=== PATIENT | female | born 1960 | race Hispanic/Latino ===

== ENCOUNTER 2016-08-02 06:31 | Day surgery (SDC) | payer BC ==
--- NOTE | 2016-08-02 07:17 | Anesthesia Consultation ---
Anesthesia Consult and Med Hx Date of service: 08/02/16 - Airway Anesthetic Teeth Evaluation: Dentures ROM Head & Neck: Adequate Mental/Hyoid Distance: Adequate Mallampati Class: Class II Intubation Access Assessment: Probably Good - Pulmonary Exam CTA: Yes - Cardiac Exam Cardiac Exam: RRR - Pre-Operative Health Status ASA Pre-Surgery Classification: ASA3 Proposed Anesthetic Plan: MAC - Pulmonary Hx Smoking: Yes (quit 2012) Hx Asthma: Yes (SEASONAL) Hx Respiratory Symptoms: No Hx Sleep Apnea: Yes (recent diagnosis and start CPAP 08/01/16) - Cardiovascular System Hx Hypertension: Yes (10YRS) - Central Nervous System Hx Seizures: No (migraines) Hx Psychiatric Problems: No - Gastrointestinal Hx Gastroesophageal Reflux Disease: Yes - Endocrine Hx Hypothyroidism: Yes - Hematic Hx Anemia: No Hx Sickle Cell Disease: No - Other Systems Hx Alcohol Use: No Hx Substance Use: No Hx Cancer: No Hx Obesity: Yes
--- NOTE | 2016-08-02 07:18 | Anesthesia Day of Surgery ---
Anesthesia Day of Surgery - Day of Surgery Patient Examined: Yes Patient H&P Reviewed: Yes Patient is NPO: Yes
[2016-08-02] MEDS ORDERED: WATER FOR IRRIG STERILE IR ONE (07:30)
[2016-08-02] MEDS ORDERED: NACL 0.9% 1000 ML 1,000 ML IV SCH (08:00)
[2016-08-02] MEDS ORDERED: DIPRIVAN 10 MG/ML IV ONE ×2 (08:16→09:11)
--- NOTE | 2016-08-02 08:29 | Discharge Summary ---
Providers - Providers Date of discharge: 08/02/16 Attending physician: MARGARET CARBONE Primary care physician: NOEMÍ RAY Hospitalization Condition: Stable Procedures: EGD Disposition: DISCHARGED TO HOME OR SELFCARE Core Measure Documentation - Palliative Care Palliative Care/ Comfort Measures: Not Applicable - Core Measures Any of the following diagnoses?: none Exam - Constitutional Vitals: Temp Pulse Resp BP Pulse Ox 98.2 F 87 18 107/74 96 08/02/16 08:04 08/02/16 08:04 08/02/16 08:04 08/02/16 08:04 08/02/16 08:04 General appearance: Present: no acute distress, well-nourished - EENT Eyes: Present: PERRL ENT: hearing intact, clear oral mucosa - Neck Neck: Present: supple, normal ROM - Respiratory Respiratory effort: normal Respiratory: bilateral: CTA - Cardiovascular Heart Sounds: Present: S1 & S2. Absent: rub, click - Abdominal General gastrointestinal: Present: soft, non-tender, non-distended, normal bowel sounds, other (obese) Female genitourinary: Present: deferred - Rectal Rectal Exam: deferred - Integumentary Integumentary: Present: clear, warm, dry - Musculoskeletal Musculoskeletal: gait normal, strength equal bilaterally - Neurologic Neurologic: CNII-XII intact, moves all extremities Plan Activity: no restrictions Weight Bearing Status: Full Weight Bearing Diet: low carbohydrate Follow up with: NOEMÍ RAY MD [Primary Care Provider] - 7 Days
[2016-08-02 09:38] VITALS: BP 123/71
--- NOTE | 2016-08-02 09:43 | Post Anesthesia Evaluation ---
- Post Anesthesia Evaluation Patient Participated: Yes Airway Patent: Yes Stable Respiratory Function: Yes Nausea/Vomiting: No Temp > 96.8F: Yes Pain Manageable: Yes Adequeate Hydration: Yes Anesthesia Complications: No Block Receding Appropriately: Not Applicable Patient on Ventilator: No
--- NOTE | 2016-08-02 12:27 | Operative Report ---
ATTENDING SURGEON: Qamar Sierra MD GEOPHYSICS SCIENTIST: Richard Melendrez MD. PREOPERATIVE DIAGNOSIS: Dyspepsia. POSTOPERATIVE DIAGNOSES: Medium to large size hiatal hernia, Zambrano's esophagus. PROCEDURE PERFORMED: Esophagogastroduodenoscopy with cold forceps biopsies x 4. INDICATIONS FOR PROCEDURE: The patient is a 56-year-old obese female, who has been undergoing workup for bariatric surgery. She complains of dyspepsia. After discussing risks and benefits of the procedure, she has decided to consent for it. DESCRIPTION OF PROCEDURE: The patient was brought to the endoscopic suite, was placed in the stretcher in the left lateral position. MAC anesthesia was used by the anesthesia team. Time-out was called. The patient and the procedure were correct. So, I proceeded to insert the endoscope into the patient's oropharynx, go down the esophagus, into the stomach and the duodenum and the scope was slowly then retrieved assessing the mucosa circumferentially. No mucosal abnormalities in the first and second portion of the duodenum was visualized. In the antrum, we did not find any mucosal findings. The endoscope was retroflexed, and we noted a medium to large size hiatal hernia. Then the endoscope was deflected again. The stomach was desufflated and the endoscope was retrieved into the esophagus. Mucosal examination revealed changes of the lower esophagus, possible Zambrano's esophagus, so we decided to take cold forceps biopsies. Three biopsies were taken from different locations of the affected mucosa. Then, we proceeded to insert the endoscope to the antrum and biopsied the antral mucosa for H. pylori. At this point, the stomach was desufflated again and the endoscope retrieved all the way out to the oropharynx of the patient and out of her mouth. She was sent to the endoscopy recovery room. Dr. Sierra was present throughout the procedure. JOB# [id number] NICKI/JAQUELINE MTDClaribel
== END 2016-08-02 06:32 | disposition home or self-care (01) ==
LOC: GIO 06:31
PROVIDERS: ATTEND Specialist
DX: K29.50 Unspecified chronic gastritis without bleeding (principal); K44.9 Diaphragmatic hernia without obstruction or gangrene; K22.70 Barrett's esophagus without dysplasia; I10 Essential (primary) hypertension; J45.909 Unspecified asthma, uncomplicated; G47.30 Sleep apnea, unspecified; K21.9 Gastro-esophageal reflux disease without esophagitis; E03.9 Hypothyroidism, unspecified; E66.9 Obesity, unspecified; Z87.891 Personal history of nicotine dependence; Z68.41 Body mass index [BMI] 40.0-44.9, adult
CPT/HCPCS: 43239; 88305; 88342; J2704; J7030

== ENCOUNTER 2016-08-23 11:22 | Inpatient (IN) | payer BC ==
--- NOTE | 2016-08-01 08:48 | Anesthesia Consultation ---
Anesthesia Consult and Med Hx Date of service: 08/23/16 - Airway Anesthetic Teeth Evaluation: Dentures (upper and lower), Edentulous ROM Head & Neck: Adequate Mental/Hyoid Distance: Adequate Mallampati Class: Class II Intubation Access Assessment: Probably Good - Pulmonary Exam CTA: Yes - Cardiac Exam Cardiac Exam: RRR - Pre-Operative Health Status ASA Pre-Surgery Classification: ASA3 Proposed Anesthetic Plan: General - Pulmonary Hx Smoking: Yes (quit 2012) Hx Asthma: Yes (SEASONAL) Hx Respiratory Symptoms: No Hx Sleep Apnea: Yes (recent diagnosis and start CPAP 08/01/16) - Cardiovascular System Hx Hypertension: Yes (10YRS) - Central Nervous System Hx Seizures: No (migraines) Hx Psychiatric Problems: No - Gastrointestinal Hx Gastroesophageal Reflux Disease: Yes - Endocrine Hx Insulin Dependent Diabetes: No Hx Hypothyroidism: Yes - Hematic Hx Anemia: No Hx Sickle Cell Disease: No - Other Systems Hx Alcohol Use: No Hx Substance Use: No Hx Cancer: No Hx Obesity: Yes
--- NOTE | 2016-08-19 11:03 | Admit Criteria Form ---
Admission Criteria Documentation: AMBULATORY SURGERY EXCEPTION CRITERIA Ambulatory Surgery Exception Criteria ( Place 'X' for any and all applicable criteria): Surgery or procedure performed on ambulatory basis may require inpatient stay for[A] ANY ONE of the following(1)(2)(3)(4)(5)(6)(7)(8)(9): [X] I. A preoperative situation, condition, or finding that warrants inpatient stay as indicated by ANY ONE of the following: [] a) Inpatient care needed because of severity of a disease or condition rather than the surgery (eg, severe cardiac or respiratory disease, severe infection) (15) (16 ) (17) (18) [] b) Emergent procedure (eg, angioplasty for acute ischemia)(19) [] c) Complex surgical approach or situation as indicated by ANY ONE of the following(3): [] i) Open approach needed instead of usual endoscopic, transcatheter, or other less invasive procedure [] ii) Difficult approach because of previous operation [] iii) Airway monitoring required after open neck procedures(20)(21) [] iv) Large mass requiring unusually extensive dissection [] v) Additional complicating feature requiring inpatient care (eg, drain management)(22(23): [X] d) Major surgery in a pt with high anesthetic risk as indicated by ANY ONE of the following (2)(3)(5)(7)(8): [X] i) ASA risk class III or higher (severe systemic disease impairing function) [D] [] ii) Advanced age (eg, older than 85 years)(14)(24) [] iii) Symptomatic heart failure(25) [] iv) Symptomatic asthma or COPD(8)(21) [] v) Morbid obesity with hemodynamic or respiratory problems(20)( 21)(26)(27) [] vi) Obstructive sleep apnea(20)(21) [] vii) Former premature infants who are younger than 60 weeks [] viii) High risk for severe postoperative abnormalities (eg, severe postoperative hypocalcemia after parathyroidectomy for severe hyperparathyroidism)(27)( 28) [] ix) Unstable angina(25) [] e) Drug-related risk requiring inpatient stay as indicated by ANY ONE of the following(5)(10)(14)(32)(33) [] i) Procedure requires discontinuing drugs or other therapy (eg , antiarrhythmic medication, antiseizure medication), which necessitates inpatient observation or treatment.(18)(31) [] ii) Major surgery and high risk drug use as indicated by ANY ONE of the following: [] 1) Active abuse of cocaine or similar drug [] 2) Monoamine oxidase inhibitor use [] 3) Other drug identified as posing risk [] f) Inadequate outpatient care situation as indicated by ANY ONE of the following(5)(10)(14)(32)(33) [] i) Patient lives remote from medical facility and procedure has urgent complication potential, and temporary nearby residence cannot be arranged [] ii) Patient will have postprocedure incapacitation and inadequate assistance at home, or alternative level of care cannot be arranged. [] iii) Patient will have long general anesthesia or procedure side effect resolution time, and competent person to stay with patient on first postoperative night at home or alternative level of care cannot be arranged. []iv) Other inadequate outpatient situation that cannot be handled by other means [] II. A perioperative event, condition, or finding that warrants inpatient stay as indicated by ANY ONE of the following (1)(2)(3): [] a) Inadequate physiologic recovery: cardiovascular, respiratory, or hemodynamic status not normal or near preoperative baseline(18) [] b) Hemodynamic instability [] c) Patient not alert with near normal or baseline mental status [] d) Temperature not normal or as expected and not appropriate for outpatient treatment of condition [] e) Ambulatory or appropriate activity level status not yet achieved post procedure [E](34)(35)(36) [] f) Operative site not appropriate (eg, unexpected or excessive drainage or bleeding) [] g) Postoperative effects not resolved or adequately managed (eg, significant pain or vomiting not appropriate for outpatient or next level of care)(10)(12) [] h) Complicating features requiring inpatient care as indicated by ANY ONE of the following(37): [] i) Severe complications of procedure (eg, bowel injury, airway compromise, vascular injury,severe hemorrhage) [] ii) Extensive (eg, dissection far beyond usual scope of procedure ) or prolonged (eg, 120 minutes beyond usual) surgery needed requiring inpatient postoperative care [] iii) Conversion to an open or complex procedure that requires inpatient care (eg, open vs laparoscopic cholecystectomy, abdominal vs vaginal hysterectomy)(38) [] iv) Comorbid condition or test result identified during or post procedure that requires inpatient care (7) [] v) Malignant hyperthermia(30) [] vi) Other complicating feature requiring inpatient care(22)(23) Inpatient stay may be needed until ALL of the following are present (1)(2)(3)(4) (5)(6)(10)(14)(33)(40): []a) Physiologic recovery: cardiovascular, respiratory, and hemodynamic status normal or near preoperative baseline []b) Hemodynamic stability []c) Patient alert, with near normal or baseline mental status []d) Temperature appropriate: patient afebrile or temperature appropriate for outpt treatment of condition []e) Activity level appropriate: ambulatory or appropriate activity level post procedure []f) Operative site appropriate as indicated by ALL of the following: []i) Site dry or with expected drainage []ii) Any blood noted is as expected for procedure. []g) Postoperative effects resolved or managed as indicated by ALL of the following: []i) Pain management appropriate for outpatient (or next level of) care(10) []ii) Minimal nausea and vomiting: if present, successfully treated with oral medication(12) []iii) Headache, dizziness, or drowsiness (if present) are mild. []h) Voiding status acceptable as indicated by ANY ONE of the following: []i) Voiding spontaneously []ii) No voiding but instructions given for follow-up in 6 to 8 hours []iii) Urinary catheter in place, and instructions given for follow-up []i) Complicating features requiring inpatient care manageable at a lower level of care(37) []j) Comorbid conditions manageable at a lower level of care(37) The original [facility] content created by [facility] has been revised. The portions of the content which have been revised are identified through the use of italic text or in bold, and [facility] [employer] has neither reviewed nor approved the modified material. All other unmodified content is copyright [facility]. Please see references footnoted in the original [facility] edition 2016 Admission Criteria Met: Yes
[~2016-08-23 11:22] MED LIST: DILAUDID IV PRN; LOVENOX SUB-Q NR; LOVENOX SUB-Q SCH; PEPCID PO NR; VERSED IV NR
--- NOTE | 2016-08-23 15:26 | Anesthesia Day of Surgery ---
Anesthesia Day of Surgery - Day of Surgery Patient Examined: Yes Patient H&P Reviewed: Yes Patient is NPO: Yes
[2016-08-23] MEDS ORDERED: PEPCID IV SCH (15:38)
[2016-08-23] MEDS: LACTATED RINGERS 1,000 ML IV SCH (15:45)
[2016-08-23] MEDS ORDERED: TRANSDERM-SCOP TD SCH (16:00)
[2016-08-23] MEDS ORDERED: DILAUDID ONE (17:51)
[2016-08-23] MEDS ORDERED: DIPRIVAN 10 MG/ML IV ONE (17:51)
[2016-08-23] MEDS ORDERED: XYLOCAINE MPF 2% ONE (17:51)
[2016-08-23] MEDS ORDERED: ZEMURON IV ONE (17:52)
[2016-08-23] MEDS ORDERED: DECADRON ONE (17:52)
[2016-08-23] MEDS ORDERED: ZOFRAN ONE (17:52)
[2016-08-23] MEDS ORDERED: NACL 0.9% IR ONE ×2 (18:57→19:06)
[2016-08-23] MEDS ORDERED: XYLOCAINE 1% 20 mL INFILTRATI ONE ×2 (18:57→19:06)
[2016-08-23] MEDS ORDERED: MARCAINE-EPI 0.5%-1:200,000 INFILTRATI ONE ×2 (18:57→19:06)
[2016-08-23] MEDS ORDERED: NEOSTIGMINE ONE (21:24)
[2016-08-23] MEDS ORDERED: ROBINUL ONE (21:24)
--- NOTE | 2016-08-23 22:04 | Post Anesthesia Evaluation ---
- Post Anesthesia Evaluation Patient Participated: Yes Airway Patent: Yes Stable Respiratory Function: Yes Temp > 96.8F: Yes Pain Manageable: Yes Adequeate Hydration: Yes Anesthesia Complications: No Block Receding Appropriately: Not Applicable
[2016-08-23] MEDS: DILAUDID IV PRN ×2 (22:05→22:15)
[2016-08-23 23:40] LABS: Hematocrit 39.1 % (30.3-42.9); Hemoglobin 12.6 gm/dl (10.1-14.3); Mean Corpuscular HGB Conc 32 % (30-34); Mean Corpuscular Hemoglobin 28 pg (28-32); Mean Corpuscular Volume 88 fl (79-97); Platelet Count 244 K/mm3 (140-440); Red Blood Count 4.44 M/mm3 (3.65-5.03); Red Cell Distribution Width 13.9 % (13.2-15.2)
[2016-08-24 00:01] LABS: Magnesium 1.8 mg/dL (1.7-2.3); Phosphorous 4.2 mg/dL (2.5-4.5)
[2016-08-24 00:05] LABS: Alanine Aminotransferase 56 units/L (7-56); Albumin 3.5 g/dL (3.9-5); Albumin/Globulin Ratio 1.3 %; Alkaline Phosphatase 61 units/L (35-129); Anion Gap 21 mmol/L; BUN/Creatinine Ratio 12.85; Bilirubin,Total 0.2 mg/dL (0.1-1.2); Blood Urea Nitrogen 9 mg/dL (7-17); Calcium 8.5 mg/dL (8.4-10.2); Carbon Dioxide 21 mmol/L (22-30); Chloride 101.3 mmol/L (98-107); Glucose 168 mg/dL (65-100); Potassium 3.9 mmol/L (3.6-5.0); Sodium 139 mmol/L (137-145); Total Protein 6.3 g/dL (6.3-8.2)
[2016-08-24 01:07] LABS: Basophils % (Manual) 0 % (0.0-1.8); Blastocytes % (Manual) 0 %; Diff Status Complete; Eosinophils % (Manual) 0 % (0.0-4.3); RBC Morphology Normal
[2016-08-24] MEDS: LACTATED RINGERS 1,000 ML IV SCH (01:37)
[2016-08-24] MEDS ORDERED: ZOFRAN IV PRN (07:00)
[2016-08-24] MEDS ORDERED: LACTATED RINGERS 1,000 ML IV SCH (07:00)
[2016-08-24] MEDS ORDERED: NORCO PO PRN (07:00)
[2016-08-24] MEDS ORDERED: LEVAQUIN 500MG/100ML 500 MG/100 ML BAG IV NR (07:00)
[2016-08-24] MEDS: MORPHINE IV PRN ×2 (08:47→13:32)
[2016-08-24] MEDS ORDERED: FLUARIX QUAD 2016-2017(36 MOS+) IM ONE (11:00)
[2016-08-24 12:34] VITALS: BP 142/80
--- NOTE | 2016-08-24 13:02 | Discharge Summary ---
Providers - Providers Date of Admission: 08/23/16 12:18 Date of discharge: 08/24/16 Attending physician: MARGARET CARBONE Primary care physician: NOEMÍ RAY Hospitalization Reason for admission: overnight observation after surgery Condition: Stable Disposition: DISCHARGED TO HOME OR SELFCARE Core Measure Documentation - Palliative Care Palliative Care/ Comfort Measures: Not Applicable - Core Measures Any of the following diagnoses?: none Exam - Physical Exam Narrative exam: NAD Lungd CTA BL Heart RRR Abd, soft, some TTP around wounds. Wounds c/d/i Neuro AAOx3 - Constitutional Vitals: Temp Pulse Resp BP Pulse Ox 97.9 F 68 20 142/80 97 08/24/16 12:32 08/24/16 12:32 08/24/16 12:32 08/24/16 12:32 08/24/16 09:55 Plan Activity: advance as tolerated Diet: other (bariatric stage 1) Special Instructions: no heavy lifting Follow up with: NOEMÍ RAY MD [Primary Care Provider] - 7 Days
[2016-08-24 13:14] LABS: Basophils % (Auto) 0.1 % (0.0-1.8); Hematocrit 39.8 % (30.3-42.9); Hemoglobin 13.3 gm/dl (10.1-14.3); Mean Corpuscular HGB Conc 33 % (30-34); Mean Corpuscular Hemoglobin 29 pg (28-32); Mean Corpuscular Volume 86 fl (79-97); Platelet Count 231 K/mm3 (140-440); Red Cell Distribution Width 13.5 % (13.2-15.2); White Blood Count 10.9 K/mm3 (4.5-11.0)
[2016-08-24 13:33] LABS: Alanine Aminotransferase 71 units/L (7-56); Albumin 3.7 g/dL (3.9-5); Albumin/Globulin Ratio 1.4 %; Alkaline Phosphatase 61 units/L (35-129); Anion Gap 20 mmol/L; Bilirubin,Total 0.3 mg/dL (0.1-1.2); Blood Urea Nitrogen 8 mg/dL (7-17); Calcium 9.1 mg/dL (8.4-10.2); Carbon Dioxide 25 mmol/L (22-30); Chloride 98.8 mmol/L (98-107); Glucose 105 mg/dL (65-100); Potassium 4.5 mmol/L (3.6-5.0); Sodium 139 mmol/L (137-145); Total Protein 6.4 g/dL (6.3-8.2)
== END 2016-08-24 14:05 | disposition home or self-care (01) | DRG 327 ==
LOC: EDSTATUS 12:15 → 3A 12:18 → 2B-SURG 21:58
PROVIDERS: ADMIT Specialist; ATTEND Specialist
PROC: 0D194ZB Bypass Duodenum to Ileum, Percutaneous Endoscopic Approach (ICD-10-PCS; principal; 2016-08-23)
PROC: 0BQS4ZZ (ICD-10-PCS; principal; 2016-08-23)
PROC: 0DB64Z3 Excision of Stomach, Percutaneous Endoscopic Approach, Vertical (ICD-10-PCS; principal; 2016-08-23)
PROC: 0BQR4ZZ (ICD-10-PCS; principal; 2016-08-23)
PROC: 0D1B4ZB Bypass Ileum to Ileum, Percutaneous Endoscopic Approach (ICD-10-PCS; principal; 2016-08-23)
DX: K21.9 Gastro-esophageal reflux disease without esophagitis (principal); Z68.41 Body mass index [BMI] 40.0-44.9, adult; E66.01 Morbid (severe) obesity due to excess calories; J45.909 Unspecified asthma, uncomplicated; I10 Essential (primary) hypertension; E03.9 Hypothyroidism, unspecified; K30 Functional dyspepsia; G47.33 Obstructive sleep apnea (adult) (pediatric); Z88.0 Allergy status to penicillin; Z87.891 Personal history of nicotine dependence; Z98.51 Tubal ligation status; E11.9 Type 2 diabetes mellitus without complications; F32.9 Major depressive disorder, single episode, unspecified; K44.9 Diaphragmatic hernia without obstruction or gangrene
CPT/HCPCS: 36415; 80053; 83735; 84100; 85007; 85025; 88307; 90686; C9250; J1100; J1170; J1650; J1956; J2250; J2270; J2405; J2704; J2710; J7120

== ENCOUNTER 2016-09-27 15:25 | Outpatient (CLI) | payer BC ==
--- NOTE | 2016-09-27 16:22 | Mammography Report ---
BILATERAL DIGITAL SCREENING MAMMOGRAM with CAD: 09/27/16 15:25:00 CLINICAL: Routine screening. COMPARISON:09/11/15 FINDINGS: The breasts are almost entirely fatty. No mass, architectural distortion or suspicious calcifications. IMPRESSION: No mammographic evidence of malignancy. BI-RADS CATEGORY: 1 - - Negative RECOMMENDATION: Routine mammographic screening in one year. COMMENT: Patient follow-up letters are generated by our [employer] application.
== END 2016-09-27 15:26 | disposition home or self-care (01) ==
LOC: SPVWC 15:25
PROVIDERS: ATTEND Family Medicine Adult Medicine
DX: Z12.31 Encounter for screening mammogram for malignant neoplasm of breast (principal)
CPT/HCPCS: 77067; G0202

== ENCOUNTER 2017-10-12 14:03 | Outpatient (CLI) | payer BC ==
--- NOTE | 2017-10-12 15:30 | Mammography Report ---
BILATERAL DIGITAL SCREENING MAMMOGRAM with CAD: 10/12/17 14:03:00 CLINICAL: Routine screening.90lb own weight loss since her last mammogram COMPARISON:09/27/16 FINDINGS: The breasts are mostly fatty and are significantly smaller compared to prior exams. No mass, architectural distortion or suspicious calcifications. IMPRESSION: No mammographic evidence of malignancy. BI-RADS CATEGORY: 1 - - Negative RECOMMENDATION: Routine mammographic screening in one year. COMMENT: Patient follow-up letters are generated by our [employer] application.
== END 2017-10-12 14:04 | disposition home or self-care (01) ==
LOC: SPVWC 14:03
PROVIDERS: ATTEND Family Medicine Adult Medicine
DX: Z12.31 Encounter for screening mammogram for malignant neoplasm of breast (principal)
CPT/HCPCS: 77067

== ENCOUNTER 2018-10-19 07:51 | Outpatient (CLI) | payer BC ==
--- NOTE | 2018-10-19 08:18 | Mammography Report ---
Bilateral mammogram: Compared to 10/12/17. CAD study utilized. Findings: Predominance adipose tissue bilaterally. New focal 2 mm asymmetry lower right breast. No microcalcifications appear normal axilla. Impression: New focal asymmetry right breast. Recommend spot compression and if necessary sonographic examination. The BI-RADS CATEGORY: 0 = Needs additional imaging evaluation ACR BI-RADS MAMMOGRAPHIC CODES: 0 = Needs additional imaging evaluation; 1 = Negative; 2 = Benign; 3 = Probably benign; 4 = Suspicious; 5 = Malignant; 6 = Known biopsy-proven malignancy COMMENT: 1. Dense breast tissue, i.e., adenosis, fibrocystic changes, etc., may obscure an underlying neoplasm. 2. Approximately 10% of cancers are not detected with mammography. 3. A negative mammography report should not delay biopsy if a clinically suspicious mass is present. The COMMENT: Patient follow-up letters are generated in [employer].
== END 2018-10-19 07:52 | disposition home or self-care (01) ==
LOC: SPVWC 07:51
PROVIDERS: ATTEND Family Medicine Adult Medicine
DX: Z12.31 Encounter for screening mammogram for malignant neoplasm of breast (principal); E78.00 Pure hypercholesterolemia, unspecified; I10 Essential (primary) hypertension; K21.9 Gastro-esophageal reflux disease without esophagitis; J45.909 Unspecified asthma, uncomplicated; E03.9 Hypothyroidism, unspecified; Z90.89 Acquired absence of other organs
CPT/HCPCS: 77067

== ENCOUNTER 2018-11-07 09:15 | Outpatient (CLI) | payer BC ==
--- NOTE | 2018-11-07 10:16 | Mammography Report ---
RIGHT DIGITAL DIAGNOSTIC MAMMOGRAM : 11/07/18 09:15:00 CLINICAL: Recalled for asymmetry. COMPARISON:10/19/18 screening FINDINGS: Additional mammographic views were performed and are negative. IMPRESSION: No mammographic evidence of malignancy. BI-RADS CATEGORY: 1 -- Negative RECOMMENDATION: Routine mammographic screening in one year. COMMENT: 1. Dense breast tissue, i.e., adenosis, fibrocystic changes, etc., may obscure an underlying neoplasm. 2. Approximately 10% of cancers are not detected with mammography. 3. A negative mammography report should not delay biopsy if a clinically suspicious mass is present. COMMENT: Patient follow-up letters are generated via our [employer] application.
== END 2018-11-07 09:16 | disposition home or self-care (01) ==
LOC: SPVWC 09:15
PROVIDERS: ATTEND Family Medicine Adult Medicine
DX: R92.2 Inconclusive mammogram (principal); K21.9 Gastro-esophageal reflux disease without esophagitis; E78.00 Pure hypercholesterolemia, unspecified; I10 Essential (primary) hypertension; E66.9 Obesity, unspecified; E03.9 Hypothyroidism, unspecified